=== PATIENT | male | born 1970 | race Two or more races ===

== ENCOUNTER 2017-06-01 16:00 | Inpatient (IN) | payer OTHER ==
[~2017-06-01] VITALS: Ht 172.7 cm; Wt 91.2 kg
[2017-06-01] MEDS ORDERED: SODIUM CHLORIDE 0.9% 1,000 ML IV ONE (16:26)
[2017-06-01] MEDS ORDERED: methylPREDNISolone SOD SUCC 125 MG/2 ML VL IV ONE (16:30)
[2017-06-01 16:34] LABS: Basophils # (auto) 0 uL; Basophils % (auto) 0.2 % (0.0-2.0); CONDITION Y; Eosinophils # (auto) 0 uL; Hematocrit 45.4 % (41.0-53.0); Hemoglobin 15.4 g/dL (13.5-17.5); Lymphocytes # (auto) 1.3 uL; Lymphocytes % (auto) 12.3 % (10.0-50.0); Mean Corpuscular Hemoglobin 31.7 pg (28.0-32.0); Mean Corpuscular Volume 93.3 fL (80.0-100.0); Mean Platelet Volume 9.4 fL (7.4-10.4); Monocytes # (auto) 0.5 uL; Monocytes % (auto) 4.7 % (0.0-12.0); Neutrophils % (auto) 82.8 % (37.0-80.0); Platelet Count (auto) 198 10^3/uL (140-450); Red Cell Distribution Width 13.2 % (11.6-16.0); White Blood Cell 10.9 10^3/uL (4.4-10.8)
[2017-06-01 16:47] LABS: Allen Test Yes; Base Excess -5.3 mmol/L (-2.0-2.0); Blood COHb 0.3 % (0.5-1.5); Blood MetHb 0.4 % (0.0-1.5); HCO3 18.1 mmol/L (22-26.0); MODE MASK - BIPAP; O2Hb 98.3 % (94.0-97.0); PCO2 29.8 mmHg (35.0-45.0); PCO2(T) 29.8 mmHg (35.0-45.0); PO2 175.2 mmHg (80.0-100.0); PO2(T) 175.2 mmHg (80.0-100.0); Sample Type Arterial; pH 7.401 (7.350-7.450)
[2017-06-01 16:56] LABS: Albumin 3.9 g/dL (3.4-5.0); BUN/Creatinine Ratio 19.6; Bilirubin, Total 1.1 mg/dL (0.2-1.0); Calcium 8.5 mg/dL (8.5-10.1); Potassium 3.2 mmol/L (3.5-5.1); Total Protein 6.9 g/dL (6.4-8.2)
[2017-06-01] MEDS ORDERED: AZITHROMYCIN 500MG/D5W 250ML 250 ML IV ONE (17:45)
[2017-06-01] MEDS ORDERED: POTASSIUM CHL 10% (20 MEQ/15ML) ORAL SOLN PO ONE (17:45)
[2017-06-01] MEDS ORDERED: ACETAMINOPHEN 325 MG TAB PO PRN (18:30)
[2017-06-01] MEDS ORDERED: DEXTROSE (50%) 50ML SYRG IV PRN (18:30)
[2017-06-01] MEDS ORDERED: ONDANSETRON HCL 4 MG/2 ML VIAL IV PRN (18:30)
[2017-06-01] MEDS ORDERED: TEMAZEPAM 15 MG CAP PO PRN (18:30)
[2017-06-01] MEDS ORDERED: ALUM & MAG HYDROX-SIMETH LIQ(MAALOX) 30 ML PO PRN (18:30)
[2017-06-01] MEDS ORDERED: HYDROcodone-ACET 5/325MG TAB PO PRN (18:30)
[2017-06-01] MEDS ORDERED: MORPHINE SULF INJ 2 MG/ML SYRINGE 1ML IV PRN (18:30)
[2017-06-01] MEDS ORDERED: DOCUSATE SOD 100 MG CAP PO PRN (18:30)
[2017-06-01] MEDS ORDERED: AZITHROMYCIN 250 MG TAB PO ONE (19:00)
[2017-06-01 19:28] VITALS: BP 159/127
[2017-06-01 20:53] VITALS: BP 128/78
[2017-06-01 21:37] VITALS: BP 125/80
[2017-06-01 21:44] VITALS: BP 128/78
[2017-06-01] MEDS: ACCU-CHEK COMFORT CURVE STRIP VI SCH (22:00)
[2017-06-01] MEDS: InsuLIN REG 1unit/0.01ml Soln (100units/ml) SC SCH (22:30)
[2017-06-02] MEDS: methylPREDNISolone SOD SUCC 40 MG/ML VL IV SCH ×4 (00:35→18:07)
[2017-06-02] MEDS ORDERED: TOPI100T29 PO (03:53)
[2017-06-02] MEDS ORDERED: GABA-339 PO (03:53)
[2017-06-02] MEDS ORDERED: INSLANTI SC (03:53)
[2017-06-02] MEDS ORDERED: OMEP20CA74 PO (04:14)
[2017-06-02] MEDS ORDERED: ATOR20TA PO (04:14)
[2017-06-02] MEDS ORDERED: PRED1PAK10 PO (04:14)
[2017-06-02] MEDS ORDERED: ALBUAER3 IN (04:14)
[2017-06-02] MEDS ORDERED: FLUT100I IN (04:14)
[2017-06-02] MEDS ORDERED: IPRIH INH (04:14)
[2017-06-02] MEDS ORDERED: AZIT250T5 PO (04:15)
[2017-06-02] MEDS ORDERED: INSUINJ47 SC (04:16)
[2017-06-02 05:09] VITALS: BP 145/90
[2017-06-02] MEDS: IPRATROPIUM BROM 0.5 MG/2.5ML INH SOL NEB PRN ×4 (05:56→19:51)
[2017-06-02] MEDS: ALBUTEROL SULF 2.5 MG/0.5ML(0.5%) NEB SOLN NEB PRN ×5 (05:56→22:54)
[2017-06-02 06:09] LABS: Basophils # (auto) 0 uL; CONDITION Y; Eosinophils # (auto) 0 uL; Hemoglobin 14.9 g/dL (13.5-17.5); Lymphocytes # (auto) 0.7 uL; Lymphocytes % (auto) 7.3 % (10.0-50.0); Mean Corpuscular Hemoglobin 31.6 pg (28.0-32.0); Mean Corpuscular Hgb Conc. 33.9 g/dL (32.0-36.0); Mean Corpuscular Volume 93.4 fL (80.0-100.0); Mean Platelet Volume 9.8 fL (7.4-10.4); Monocytes # (auto) 0.1 uL; Neutrophils # (auto) 8.3 uL; Neutrophils % (auto) 91.7 % (37.0-80.0); Platelet Count (auto) 194 10^3/uL (140-450); Red Cell Distribution Width 12.9 % (11.6-16.0); White Blood Cell 9.1 10^3/uL (4.4-10.8)
[2017-06-02 06:33] LABS: BUN/Creatinine Ratio 21.3; Calcium 8.6 mg/dL (8.5-10.1); Potassium 4.1 mmol/L (3.5-5.1)
[2017-06-02] MEDS: ACCU-CHEK COMFORT CURVE STRIP VI SCH ×4 (06:57→22:00)
[2017-06-02] MEDS: InsuLIN REG 1unit/0.01ml Soln (100units/ml) SC SCH ×4 (07:07→22:30)
[2017-06-02 10:00] VITALS: BP 147/98
[2017-06-02] MEDS: AZITHROMYCIN 250 MG TAB PO SCH (10:14)
[2017-06-02] MEDS: TOPIRAMATE 100 MG TAB PO SCH ×2 (12:02→22:42)
[2017-06-02] MEDS: GABAPENTIN 300 MG CAP PO SCH ×2 (15:08→22:41)
[2017-06-02 15:12] VITALS: BP 130/104
[2017-06-02 17:57] VITALS: BP 140/75
[2017-06-02 21:58] VITALS: BP 148/87
[2017-06-02] MEDS ORDERED: INSULIN DETEMIR(LEVEMIR) 1unit/0.01ml Soln (100units/ml) SC SCH (22:00)
[2017-06-02] MEDS ORDERED: ATORVASTATIN 20 MG TAB PO SCH (22:00)
[2017-06-02] MEDS: IPRATROPIUM BROM 0.5 MG/2.5ML INH SOL NEB SCH (22:54)
[2017-06-03 05:12] VITALS: BP 141/95
[2017-06-03] MEDS: GABAPENTIN 300 MG CAP PO SCH (05:59)
[2017-06-03] MEDS: methylPREDNISolone SOD SUCC 40 MG/ML VL IV SCH ×3 (05:59→11:52)
[2017-06-03] MEDS: IPRATROPIUM BROM 0.5 MG/2.5ML INH SOL NEB SCH ×3 (06:00→10:38)
[2017-06-03] MEDS: ACCU-CHEK COMFORT CURVE STRIP VI SCH ×2 (06:13→11:18)
[2017-06-03] MEDS: InsuLIN REG 1unit/0.01ml Soln (100units/ml) SC SCH ×2 (06:14→11:18)
[2017-06-03] MEDS: ALBUTEROL SULF 2.5 MG/0.5ML(0.5%) NEB SOLN NEB PRN ×3 (06:45→10:38)
[2017-06-03 09:00] VITALS: BP 141/89
[2017-06-03] MEDS: TOPIRAMATE 100 MG TAB PO SCH (09:54)
[2017-06-03] MEDS: AZITHROMYCIN 250 MG TAB PO SCH (09:54)
[2017-06-03 13:00] VITALS: BP 142/93
== END 2017-06-03 12:35 | disposition home or self-care (01) | DRG 140 ==
LOC: ER 16:09 → TELE 16:10 → WEST WING 20:53 → TELE-WESTW 20:53
PROVIDERS: ADMIT Internal Medicine; ATTEND Internal Medicine
PROC: 5A09357 Assistance with Respiratory Ventilation, Less than 24 Consecutive Hours, Continuous Positive Airway Pressure (ICD-10-PCS; principal; 2017-06-01)
DX: J44.1 Chronic obstructive pulmonary disease with (acute) exacerbation (principal); E11.40 Type 2 diabetes mellitus with diabetic neuropathy, unspecified; E88.01 Alpha-1-antitrypsin deficiency; E11.65 Type 2 diabetes mellitus with hyperglycemia; J45.901 Unspecified asthma with (acute) exacerbation; J20.9 Acute bronchitis, unspecified; Z99.81 Dependence on supplemental oxygen; J44.0 Chronic obstructive pulmonary disease with (acute) lower respiratory infection; I10 Essential (primary) hypertension; E78.5 Hyperlipidemia, unspecified; E87.6 Hypokalemia; Z57.6 Occupational exposure to extreme temperature; Z88.6 Allergy status to analgesic agent; Z79.4 Long term (current) use of insulin; Z79.899 Other long term (current) drug therapy
CPT/HCPCS: 36415; 36600; 71010; 80048; 80053; 82805; 82962; 83735; 84443; 85025; 93005; 94640; 94660; 94761; 96361; 96365; 96366; 96375; J1815

== ENCOUNTER 2023-10-29 14:24 | Emergency (ER) | payer OTHER ==
[~2023-10-29] VITALS: Ht 172.7 cm; Wt 100.0 kg
[~2023-10-29 14:24] MED LIST: ALBUAER3 IN; ATOR20TA PO; AZIT-43 PO; FLUT100I IN; GABA-339 PO; INSLANTI SC; INSUINJ47 SC; IPRIH INH; OMEP20CA74 PO; PRED1PAK10 PO; TOPI100T29 PO
[2023-10-29 14:39] VITALS: BP 121/91; PULSE 89; RESP 16; O2SAT 100
== END 2023-10-29 19:02 | disposition left against medical advice (07) ==
LOC: ER 14:24
DX: L02.212 Cutaneous abscess of back [any part, except buttock and flank] (principal); Z53.21 Procedure and treatment not carried out due to patient leaving prior to being seen by health care provider

== ENCOUNTER 2023-10-31 08:38 | Emergency (ER) | payer OTHER ==
[~2023-10-31] VITALS: Ht 172.7 cm; Wt 94.7 kg
[2023-10-31] MEDS ORDERED: CEPH500C PO (10:11)
[2023-10-31 10:12] VITALS: BP 113/90; PULSE 86; RESP 18; TEMP 97.5; O2SAT 99
== END 2023-10-31 10:19 | disposition home or self-care (01) ==
LOC: ER 08:38
DX: D17.1 Benign lipomatous neoplasm of skin and subcutaneous tissue of trunk (principal); L08.9 Local infection of the skin and subcutaneous tissue, unspecified; I10 Essential (primary) hypertension; E11.9 Type 2 diabetes mellitus without complications; J44.9 Chronic obstructive pulmonary disease, unspecified; E78.5 Hyperlipidemia, unspecified; Z79.4 Long term (current) use of insulin; Z79.2 Long term (current) use of antibiotics; Z79.899 Other long term (current) drug therapy; Z88.6 Allergy status to analgesic agent; Z88.8 Allergy status to other drugs, medicaments and biological substances